=== PATIENT | male | born 2000 | race African-American/Black ===

== ENCOUNTER 2021-09-08 00:34 | Emergency (ER) | payer SELFPAY ==
[~2021-09-08] VITALS: Ht 182.9 cm; Wt 68.0 kg
[2021-09-08 00:43] VITALS: BP 125/80
[2021-09-08] MEDS ORDERED: predniSONE 20 MG TABLET ONE (00:55)
[2021-09-08] MEDS ORDERED: predniSONE 50 MG TABLET PO ONE (01:00)
[2021-09-08] MEDS ORDERED: EPIN0.3P3 IJ (01:13)
== END 2021-09-08 01:41 | disposition home or self-care (01) ==
LOC: ER 00:38
DX: T78.1XXA Other adverse food reactions, not elsewhere classified, initial encounter (principal); Z79.899 Other long term (current) drug therapy; X58.XXXA Exposure to other specified factors, initial encounter
CPT/HCPCS: 99283; J7512